=== PATIENT | male | born 1955 | race Caucasian/White ===

== ENCOUNTER 2018-05-31 07:28 | Day surgery (SDC) | payer OTHER ==
[~2018-05-31] VITALS: Ht 174 cm; Wt 77.1 kg
[~2018-05-31 07:28] MED LIST: ALLE180T33 PO; BREO1INH3; INCR1INH; VENTAER INH
[2018-05-31] MEDS ORDERED: EPINEPHrine 1MG/10ML SYRINGE 1.5IN As Ordered ONE (07:33)
[2018-05-31] MEDS ORDERED: THROMBIN SOLN 20,000 UNITS KIT As Ordered ONE (07:33)
[2018-05-31] MEDS ORDERED: LIDOCAINE 1% SDV INJ 30 ML VIAL As Ordered ONE (07:33)
[2018-05-31] MEDS ORDERED: LIDOCAINE 4% TOPICAL SOLN 50 ML BTL As Ordered ONE (07:34)
[2018-05-31] MEDS ORDERED: LIDOCAINE VISCOUS 2% SOLN 15ML UDC As Ordered ONE (07:34)
[2018-05-31] MEDS ORDERED: CETACAINE SPRAY 5GM As Ordered ONE (07:37)
[2018-05-31] MEDS ORDERED: LR 1,000 ML IV ONE (07:45)
[2018-05-31] MEDS ORDERED: PROPOFOL 200 MG/20 ML VIAL As Ordered ONE (07:52)
[2018-05-31] MEDS ORDERED: ROCURONIUM BROMIDE 50 MG/5 ML VIAL As Ordered ONE (07:52)
[2018-05-31] MEDS ORDERED: LIDOCAINE 2% INJ 100 MG/5 ML SDV (FOR ANES.) As Ordered ONE (07:53)
[2018-05-31] MEDS ORDERED: fentaNYL 100 MCG/2 ML INJECTION (J3010) As Ordered ONE ×2 (07:53→09:35)
[2018-05-31] MEDS ORDERED: MIDAZOLAM INJ 2 MG/2 ML VIAL (J2250) As Ordered ONE (07:53)
[2018-05-31] MEDS ORDERED: ALBUTEROL SULFATE 2.5 MG/0.5 ML INH NEB SOLN INH ONE (08:15)
[2018-05-31] MEDS ORDERED: dexameTHASONE 4 MG/ML 1ML VIAL (J1100) As Ordered ONE (09:01)
[2018-05-31] MEDS ORDERED: ONDANSETRON 4MG/2ML VIAL (J2405) As Ordered ONE (09:12)
[2018-05-31] MEDS ORDERED: GLYCOPYRROLATE INJ 0.2 MG/ML 2 ML VIAL As Ordered ONE (09:17)
[2018-05-31] MEDS ORDERED: NEOSTIGMINE 10 MG/10 ML VIAL (J2710) As Ordered ONE (09:17)
[2018-05-31] MEDS ORDERED: ePHEDrine SULFATE 25 MG/5 ML(5MG/ML) SYRINGE As Ordered ONE (09:43)
[2018-05-31] MEDS ORDERED: ONDANSETRON 4MG/2ML VIAL (J2405) IV PRN (10:45)
[2018-05-31] MEDS ORDERED: HYDROMORPHONE HCL 0.5 MG/ 0.5 ML SYRINGE (J1170 PER 1) IV PRN (10:45)
[2018-05-31] MEDS ORDERED: fentaNYL 100 MCG/2 ML INJECTION (J3010) IV PRN (10:45)
[2018-05-31] MEDS ORDERED: PERCOCET 5MG/325MG TAB PO PRN (10:45)
[2018-05-31] MEDS ORDERED: LR 1,000 ML IV SCH (10:45)
--- NOTE | 2018-05-31 10:53 | REP ---
Chest one-view HISTORY: Placement Comparison: None Linear densities are present in the right lung apex consistent with scar. The left lung is clear. The heart is normal in size. The pulmonary vasculature is normal in appearance. Impression: No acute disease. Electronically Signed by Oj Hogan MD 05/31/2018 10:45 A
[2018-05-31 12:00] VITALS: BP 128/74
--- NOTE | 2018-06-01 08:48 | RO ---
DATE OF PROCEDURE: 05/31/2018 PREPROCEDURE DIAGNOSIS: Left upper lobe nodule, unknown etiology. POSTPROCEDURE DIAGNOSIS: Left upper lobe nodule, unknown etiology. PROCEDURE: Electromagnetic navigational bronchoscopy with FNA, GenCut, transbronchial biopsies, microbiology brushing, and BAL of the left upper lobe lesion. A Percepta brushing was done of the right mainstem for cells. PROCEDURALIST: Yeni Nunn MD ANESTHESIA: General. DESCRIPTION OF PROCEDURE: The procedure was explained and consent was obtained. Lockwood procedure was followed. The patient had been intubated by anesthesia and the anesthesia service handled sedation and pain management. The bronchoscope was then introduced into the trachea. The left and right lungs were examined. There was pitting and banding noted. There was a small amount of thick clear secretions and the appearance of bronchiectasis. The right mainstem anterior and posterior maguire were then brushed with the Percepta Cardwell for cells. Following this, registration was done. The ENB probe was then placed and using the probe the nodule was located. This was confirmed by fluoroscopy. A fine needle aspirate was done of the lesion, followed by GenCut. Brushing for microbiology was then done. Five endobronchial biopsies were done, and finally BAL was done. Following the procedures, the bronchoscope was withdrawn and the airways were inspected. After assuring visual hemostasis, bronchoscope was withdrawn. He tolerated it well. Chest x-ray pending. FINDINGS: 1. Pitting and banding of the airways. 2. Appearance of mild bronchiectasis. 3. Minimal thick clear secretions. SPECIMENS: 1. Left upper lobe FNA, sent to cytology. 2. Left upper lobe nodule, GenCut sent to cytology. 3. Left upper lobe brushing sent to microbiology. 4. Left upper lobe transbronchial biopsies sent to pathology. 5. Left upper lobe BAL sent to cytology. [facility]
== END 2018-05-31 12:00 | disposition home or self-care (01) ==
LOC: M SDC 07:28
PROVIDERS: ATTEND Internal Medicine Pulmonary Disease
DX: R91.8 Other nonspecific abnormal finding of lung field (principal); K57.32 Diverticulitis of large intestine without perforation or abscess without bleeding; K44.9 Diaphragmatic hernia without obstruction or gangrene; J43.1 Panlobular emphysema; R06.00 Dyspnea, unspecified; M12.9 Arthropathy, unspecified; J45.909 Unspecified asthma, uncomplicated; Z87.891 Personal history of nicotine dependence
CPT/HCPCS: 31623; 31624; 31625; 31652; 71045; 76000; 87071; 88108; 88173; 88305; 88313; J1100; J2250; J2405; J2710; J3010

== ENCOUNTER → 2018-09-04 | Outpatient (CLI) | payer OTHER ==
--- NOTE | 2018-09-04 12:16 | REP ---
CT CHEST WITHOUT CONTRAST: HISTORY: Abnormal lung field finding. Comparison is made with multiple prior chest CT studies, the most recent of which is from May 19, 2018 and the most remote of which is from June 08, 2017. These are outside prior chest CT studies. CT FINDINGS: There are scattered granulomatous calcifications. The lungs remain hyperinflated. There are is moderate biapical pleuroparenchymal fibrosis. Scattered emphysematous bullae are noted in the upper lobes. A large hiatal hernia is seen. There is no evidence of pleural or pericardial effusion. The visualized upper abdominal structures are unremarkable. There is a granulomatous calcification in the liver. No mediastinal adenopathy is seen. Mild vascular calcifications noted. There is a 5 mm pulmonary nodule in the right upper lobe on today's CT study page 30 of 120 in series 201. This is unchanged from the two most recent exam from May 19, 2018 and March 07, 2018. It is not apparent on the June 04, 2017 or September 02, 2017 prior study. There is a noncalcified curvilinear nodular opacity in the left upper lobe anteriorly on page 38 of 120 in series 201 of today's study. This is decreasing in size when compared with the March 07, 2018 and May 19, 2018 studies. There is a tiny 2-3 mm nodular density in the superior segment of the right lower lobe on page 40 of 120. This is decreased in size when compared with the May 19, 2018 study. There is a somewhat nodular area of increased density and peribronchial thickening in the left upper lobe perihilar region on page 38 of 120 series 201 of today's exam. This is also improved when compared with the May 19, 2018 study. Just posterior and inferior to this, there is a 6 mm nodular density in the left upper lobe, page 39 of 120 in series 201. This it is also improved when compared with the March 07, 2018 study. These left upper lobe densities appear to be new when compared with the May and August 2017 prior studies. No new pulmonary nodule is appreciated. IMPRESSION: Improving peribronchial opacity and nodular opacities left upper lobe compared with the two most recent prior studies. Electronically Signed by Jagjit Min MD 09/04/2018 01:21 P
== END ==
LOC: M RAD 09:29
PROVIDERS: ATTEND Internal Medicine Pulmonary Disease
DX: R91.8 Other nonspecific abnormal finding of lung field (principal)

== ENCOUNTER → 2020-03-20 | Outpatient (CLI) | payer OTHER ==
--- NOTE | 2020-03-20 10:46 | REP ---
INDICATION: LUNG SCREENING FILE RM. COMPARISON: CT 09/04/2018, 05/19/2018, 03/07/2018. TECHNIQUE: Low-dose lung screening CT protocol FINDINGS: Lungs are hyperinflated with underlying COPD and some emphysematous change. There is apical bullous change in right greater than left. Stable appearance of posterior apical right upper lobe fibrosis and apical pleuroparenchymal scarring also in the left unchanged from multiple prior studies. Some scattered calcified granulomata are noted. In the left upper lobe on image 33 previously noted 5 mm nodular curvilinear opacity is increased in size and measures 12 mm there are several other peripheral nodular opacities near this, the largest 15 mm and others in the range of 5 to 12 mm. All of these are anterior to the major fissure in the left upper lobe. The more central of these nodules are peribronchial. Granuloma on the right upper lobe on image 45. Cylindrical bronchiectatic changes are noted bilaterally. Moderately large hiatal hernia evident. Heart not enlarged. LungRADS category 4 B suspicious. New solid nodule 15 mm or greater. There are multiple nodules smaller than this and clustered in the left upper lobe. CT chest with contrast and/or PET CT recommended. Other findings are stable compared to prior exams. IMPRESSION: LungRADS category 4 B suspicious. New solid nodule 15 mm or greater. There are multiple other nodules smaller than this and clustered in the left upper lobe. CT chest with contrast and/or PET CT recommended. Other findings are stable compared to prior exams. <Electronically signed by Ketan Stevenson > 03/20/20 [id number]
== END ==
LOC: M RAD 09:26
PROVIDERS: ATTEND Internal Medicine Pulmonary Disease
DX: Z12.2 Encounter for screening for malignant neoplasm of respiratory organs (principal); Z87.891 Personal history of nicotine dependence; R91.8 Other nonspecific abnormal finding of lung field

== ENCOUNTER → 2020-04-29 | Outpatient (CLI) | payer OTHER ==
--- NOTE | 2020-04-29 17:50 | REP ---
INDICATION: DIAGNOSING LUNG NODULE. COMPARISON: Comparison is made with chest CT studies the most recent which is from March 20, 2020.. TECHNIQUE: Sixty-one minutes following the intravenous injection of a 8.3 mCi dose of F-18 FDG, three-dimensional PET scintigraphy is acquired from the skull base to the proximal thighs. Triplanar noncontrast CT scanning is acquired through the same anatomic range for attenuation correction, and image registration with scan parameters optimized to minimize radiation exposure to the patient. PET scintigraphy and CT datasets were fused and displayed on a workstation with multiplanar and projection display capability. FINDINGS: Head and neck soft tissues are unremarkable. No evidence of hypermetabolic mediastinal or hilar kriss activity. There is a fairly large hiatal hernia behind the heart. The left upper lobe contains multiple nodules as seen on the most recent prior CT study. The more peripheral nodules are not hypermetabolic. The largest of these peripheral nodules has maximum standard uptake value of 1.21. There is a peribronchovascular nodule a little more inferiorly in the left suprahilar region which has maximum standard uptake value 2.41. This is still not considered hypermetabolic. This is the most avid nodule. Findings are nonspecific. No other abnormal hypermetabolic uptake is seen in the chest. In the abdomen and pelvis, there is normal distribution of tracer. No abnormal hypermetabolic uptake is seen in the abdomen or pelvis. The scintigraphy is otherwise unremarkable. IMPRESSION: There is visible but non hypermetabolic uptake in the left upper lobe nodular densities seen on CT study. Maximum standard uptake value is in the more inferior of these in a peribronchovascular distribution, 2.41. These findings are nonspecific. <Electronically signed by Bala Min > 04/29/20 [id number]
== END ==
LOC: M PLARAD 12:32
PROVIDERS: ATTEND Internal Medicine Pulmonary Disease
DX: R91.8 Other nonspecific abnormal finding of lung field (principal)
CPT/HCPCS: 78815; A9552

== ENCOUNTER → 2020-05-01 | Outpatient (CLI) | payer OTHER ==
--- NOTE | 2020-05-01 11:09 | REP ---
INDICATION: ABNORMAL FINDING OF LUNG FIELD. COMPARISON: Chest CTs dated 09/04/2018 in the [facility] 10/03/2019. TECHNIQUE: Chest CT without IV contrast. FINDINGS: There is an 11 mm lung nodule in the left upper lobe on image 27. There is a 15 mm lung nodule in the left upper lobe on image 29. There is a 15 mm lung nodule posterolaterally in the left upper lobe on image 30. There are several other smaller left upper lobe lung nodules. All of the above lung nodules are unchanged from 03/20/2020 but were not present on 09/04/2018. There are 2 calcified granulomas in the right upper lobe on image 24, unchanged from both prior studies. There is a small curvilinear lung density anteriorly in the left upper lobe on image 36, unchanged from both prior studies. There is chronic bilateral apical pleuroparenchymal scarring, unchanged from both prior studies. No other lung nodules or masses are identified. There are no infiltrates or pleural effusions. There is a fixed 7.9 cm hiatal hernia. There is no mediastinal or axillary lymph node enlargement. The study is insensitive for hilar lymph node enlargement in the absence of IV contrast. There is a small precarinal calcification compatible with calcified granuloma. This is unchanged from both prior studies. Upper abdomen: There is no adrenal nodule is The visualized areas of the unenhanced hepatic parenchyma demonstrate 2 small hepatic hypodensities on image 102, unchanged from 09/04/2018, likely hepatic cysts. There is a small hepatic calcified granuloma on image 90, also unchanged from 09/04/2018. The visualized areas of the gallbladder, pancreas and spleen are unremarkable. IMPRESSION: Multiple lung nodules as described. 2 small stable hepatic hypodensities, likely hepatic cysts, unchanged from 09/04/2018. Tiny hepatic calcified granuloma, unchanged. . Fixed hiatal hernia. <Electronically signed by Domo Okeefe > 05/01/20 [id number]
== END ==
LOC: M RAD 10:12
PROVIDERS: ATTEND Internal Medicine Pulmonary Disease
DX: R91.8 Other nonspecific abnormal finding of lung field (principal); K44.9 Diaphragmatic hernia without obstruction or gangrene

== ENCOUNTER → 2021-02-11 | Outpatient (CLI) | payer OTHER ==
--- NOTE | 2021-02-12 10:32 | REP ---
INDICATION: ABN FINDING OF LUNG COMPARISON: 05/01/2020 TECHNIQUE: Axial noncontrast images from the thoracic inlet to the upper abdomen with coronal and sagittal reformations. This CT examination was performed using the following dose reduction techniques: Automated exposure control, adjustment of mA and/or kv according to the patient's size, and use of iterative reconstruction technique. FINDINGS: Prominent biapical scarring with nodular soft tissue components again noted along with underlying chronic emphysematous changes similar to prior examination. Scattered primarily noncalcified nodules most notably involving the mid left upper lobe including more central small partially cavitary component and largest peripheral nodular density measuring 18 mm remain stable as compared with 05/01/2020, but the multiple nodules in the mid left upper lobe are relatively new as compared with more distant examinations including 09/04/2018. There is no focal consolidation or effusion. No pneumothorax. Tracheobronchial tree demonstrates mild bronchiectasis. No obvious adenopathy is identified. The mediastinum demonstrates stable atherosclerotic changes to the thoracic aorta and coronary arteries along with large paraesophageal gastric hiatal hernia. Skeletal structures without acute osseous abnormality. IMPRESSION: 1. Scarring and scattered bilateral noncalcified nodules are stable compared through multiple prior examinations including [address] However, nodules including 18 mm density in the mid left upper lobe which were deemed mildly hypermetabolic on prior PET-CT represent new findings in relation to 09/04/2018 examination. While this may reflect in overall chronic inflammatory process short-term 6 month follow-up examination may be warranted to confirm relative stability. <Electronically signed by Taco Gonzalez > 02/12/21 1998
== END ==
LOC: M RAD 13:00
PROVIDERS: ATTEND Internal Medicine Pulmonary Disease
DX: R91.8 Other nonspecific abnormal finding of lung field (principal)

== ENCOUNTER → 2021-10-14 | Outpatient (CLI) | payer MEDICAID, MEDICARE, OTHER | LOC: M RAD 15:48 | PROVIDERS: ATTEND Internal Medicine Pulmonary Disease | DX: R91.8 Other nonspecific abnormal finding of lung field (principal); J43.9 Emphysema, unspecified; I25.10 Atherosclerotic heart disease of native coronary artery without angina pectoris; K76.0 Fatty (change of) liver, not elsewhere classified; K44.9 Diaphragmatic hernia without obstruction or gangrene ==

== ENCOUNTER → 2022-11-02 | Outpatient (CLI) | payer MEDICARE | LOC: M RAD 17:47 | PROVIDERS: ATTEND Physician Assistant | DX: R91.8 Other nonspecific abnormal finding of lung field (principal) ==

== ENCOUNTER → 2023-12-14 | Outpatient (CLI) | payer MEDICARE | LOC: M RAD 14:50 | PROVIDERS: ATTEND Internal Medicine Pulmonary Disease | DX: Z12.2 Encounter for screening for malignant neoplasm of respiratory organs (principal); Z87.891 Personal history of nicotine dependence ==

== ENCOUNTER → 2025-02-04 | Outpatient (CLI) | payer OTHER | LOC: M PLARAD 10:45 | PROVIDERS: ATTEND Physician Assistant | DX: R91.8 Other nonspecific abnormal finding of lung field (principal) | CPT/HCPCS: 78815; A9552 ==

== ENCOUNTER → 2025-02-07 | Outpatient (CLI) | payer OTHER | LOC: M LAB 11:36 | PROVIDERS: ATTEND Physician Assistant | DX: R91.8 Other nonspecific abnormal finding of lung field (principal) ==